=== PATIENT | female | born 1970 | race Hispanic/Latino ===

== ENCOUNTER 2016-06-16 15:08 | Emergency (ER) | payer OTHER ==
--- NOTE | 2016-06-16 15:52 | EDDOCDS ---
Physician Documentation [facility] Name: Osiel Krueger Age: 45 yrs Sex: Female : 1970 Arrival Date: 06/16/2016 Time: 15:08 Bed I9 / 22 Private MD: Jack Mcgill Disposition: 06/16/16 15:43 Discharged to Home/Self Care. Impression: Illness, unspecified, Otalgia and effusion of ear. - Condition is Stable. - Discharge Instructions: Earache, Viral Infections. - Prescriptions for Tamiflu 75 mg Oral Capsule - take 1 capsule by ORAL route every 12 hours for 5 days; 10 capsule. Mucinex 600 mg - take 1 tablet by ORAL route 2 times per day; 30 tablet. - Work Release Form - 2 day, Medication Reconciliation, Local Pharmacy Hours form. - Follow up: Jack Mcgill; When: 4 - 5 days; Reason: Recheck today's complaints, Continuance of care. - Problem is an ongoing problem. - Symptoms are unchanged. Historical: - Allergies: no known allergies; - Home Meds: 1. cetirizine 10 mg oral cap daily 2. dayquil as needed (Last dose: 06/16/2016 08:00) 3. Advil 200 mg Oral tab 2 tabs every 4 hours (Last dose: 06/16/2016 14:00) - PMHx: Allergies, Seasonal; - PSHx: none; - Social history: Smoking status: Patient states was never smoker of tobacco. Patient/guardian denies using alcohol, street drugs, No barriers to communication noted, The patient speaks fluent Estonian, Speaks appropriately for age, Preferred Language: Slovenian. - Family history: Not pertinent. - : The pt / caregiver states he / she is not on anticoagulants. Home medication list is obtained from the patient. - Exposure Risk Screening:: None identified. 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 2 in. (157.48 cm); Pain 6/10; 15:10 Body Mass Index 26.52 (65.77 kg, 157.48 cm) jrd Signatures: Leonard Jarrell, RN RN dy Chin Galicia, BRAND AMBASSADOR PROMOTIONAL MODEL BRAND AMBASSADOR PROMOTIONAL MODEL Latisha Moya, RN RN ttb MTDD
--- NOTE | 2016-06-16 15:52 | EDDOCDS ---
Nurse's Notes [facility] Name: Osiel Krueger Age: 45 yrs Sex: Female : 1970 Arrival Date: 06/16/2016 Time: 15:08 Bed I9 / 22 Private MD: Jack Mcgill Diagnosis: Illness, unspecified;Otalgia and effusion of ear Presentation: 06/16 15:29 Presenting complaint: Patient states: Right ear pain, throat pain x1 day. Adult Sepsis ttb Screening: The patient does not have new or worsening altered mentation. Patient's respiratory rate is less than 22. Systolic blood pressure is greater than 100. Patient has a qSOFA score of 0- Negative Sepsis Screen. Suicide/Homicide risk assessment- the patient denies having any suicidal and/or homicidal ideations and does not present with any other emotional, behavioral or mental health complaints. Status: Patient is not a industrial garage servicer or dependent. Transition of care: patient was not received from another setting of care. 15:29 Acuity: ADAM Level 4 ttb 15:29 Method Of Arrival: Walkin/Carried/Asstd ttb Triage Assessment: 15:30 General: Appears in no apparent distress, well nourished, well groomed, Behavior is ttb appropriate for age, cooperative, pleasant. Pain: Location: right ear. HIV screening NA for this visit Offered previously. EENT:. Respiratory: Airway is patent Reports cough that is. Derm: Skin is normal. 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 cetirizine 10 mg oral cap daily 2. dayquil as needed (Last dose: 06/16/2016 08:00) 3. Advil 200 mg Oral tab 2 tabs every 4 hours (Last dose: 06/16/2016 14:00) - PMHx: Allergies, Seasonal; - PSHx: none; - Social history: Smoking status: Patient states was never smoker of tobacco. Patient/guardian denies using alcohol, street drugs, No barriers to communication noted, The patient speaks fluent Slovak, Speaks appropriately for age, Preferred Language: Latvian. - Family history: Not pertinent. - : The pt / caregiver states he / she is not on anticoagulants. Home medication list is obtained from the patient. - Exposure Risk Screening:: None identified. Screenin:50 Screening information is obtained from the patient. Fall risk: No risks identified. dy Assistance ADL's: requires no assistance with activities of daily living. Abuse/DV Screen: The patient / caregiver reports he/she is: not in a situation that causes fear, pain or injury. Nutritional screening: No deficits noted. Advance Directives: There is no active DNR order. home support is adequate. Assessment: 15:51 General: Appears in no apparent distress, Behavior is appropriate for age, cooperative. dy Pain: Location: throat. Neurological: No deficits noted. Respiratory: No deficits noted. Derm: Skin is pink, warm & dry. Vital Signs: 15:10 BP 158 / 83; Pulse 122; Resp 18; Temp 99.6(O); Pulse Ox 100% on R/A; Weight 65.77 kg jr (R); Height 5 ft. 2 in. (157.48 cm); Pain 6/10; 15:10 Body Mass Index 26.52 (65.77 kg, 157.48 cm) [facility] Vitals: 15:10 Log In Time: June 16, 2016 at 15:00. [facility] ED Course: 15:09 Patient visited by Hector Brandt PCA. jrd 15:09 Patient moved to Waiting jrd 15:10 Jack Mcgill is Private Physician. jrd 15:12 Patient visited by Hector Brandt PCA. jrd 15:12 Patient moved to Pre RCE jrd 15:29 Triage Initiated ttb 15:31 Patient moved to I9 / 22 ttb 15:36 [facility] ke 15:36 Patient visited by Chin Galicia FNP. ke 15:36 Patient visited by Chin Galicia FNP. ke 15:43 Jack Mcgill is Referral Physician. ke 15:50 The patient / caregiver is instructed regarding the plan of care and ED course. Patient dy has correct armband on for positive identification. 15:50 No IV's were initiated during this patient's visit. No procedures done that require dy assistance. Order Results: There are currently no results for this order. Outcome: 15:43 Discharge ordered by Provider. ke 15:50 Discharge Assessment: patient administered narcotics - no. The following High Risk dy Discharge criteria are identified: None. Discharged to home ambulatory. Condition: stable. Discharge instructions given to patient, Instructed on discharge instructions, follow up and referral plans. medication usage, Demonstrated understanding of instructions, medications, Pt was receptive of discharge instructions/ teaching. Prescriptions given X 2, Work note provided to patient. No special radiology studies were completed. Property sent home with patient. 15:52 Patient left the ED. dy Signatures: Leonard Jarrell RN RN Chin Tay, FOREIGN LANGUAGE STENOGRAPHER Latisha Arellano RN RN ttHector Gross PCA PCA jramber WILBUR
--- NOTE | 2016-06-18 16:53 | EDDOCDS ---
Nurse's Notes [facility] Name: Osiel Krueger Age: 45 yrs Sex: Female : 1970 Arrival Date: 06/16/2016 Time: 15:08 Bed I9 / 22 Private MD: Jack Mcgill Diagnosis: Illness, unspecified;Otalgia and effusion of ear Presentation: 06/16 15:29 Presenting complaint: Patient states: Right ear pain, throat pain x1 day. Adult Sepsis ttb Screening: The patient does not have new or worsening altered mentation. Patient's respiratory rate is less than 22. Systolic blood pressure is greater than 100. Patient has a qSOFA score of 0- Negative Sepsis Screen. Suicide/Homicide risk assessment- the patient denies having any suicidal and/or homicidal ideations and does not present with any other emotional, behavioral or mental health complaints. Status: Patient is not a consulting services associate or dependent. Transition of care: patient was not received from another setting of care. 15:29 Acuity: ADAM Level 4 ttb 15:29 Method Of Arrival: Walkin/Carried/Asstd ttb Triage Assessment: 15:30 General: Appears in no apparent distress, well nourished, well groomed, Behavior is ttb appropriate for age, cooperative, pleasant. Pain: Location: right ear. HIV screening NA for this visit Offered previously. EENT:. Respiratory: Airway is patent Reports cough that is. Derm: Skin is normal. 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 cetirizine 10 mg oral cap daily 2. dayquil as needed (Last dose: 06/16/2016 08:00) 3. Advil 200 mg Oral tab 2 tabs every 4 hours (Last dose: 06/16/2016 14:00) - PMHx: Allergies, Seasonal; - PSHx: none; - Social history: Smoking status: Patient states was never smoker of tobacco. Patient/guardian denies using alcohol, street drugs, No barriers to communication noted, The patient speaks fluent Welsh, Speaks appropriately for age, Preferred Language: Italian. - Family history: Not pertinent. - : The pt / caregiver states he / she is not on anticoagulants. Home medication list is obtained from the patient. - Exposure Risk Screening:: None identified. Screenin:50 Screening information is obtained from the patient. Fall risk: No risks identified. dy Assistance ADL's: requires no assistance with activities of daily living. Abuse/DV Screen: The patient / caregiver reports he/she is: not in a situation that causes fear, pain or injury. Nutritional screening: No deficits noted. Advance Directives: There is no active DNR order. home support is adequate. Assessment: 15:51 General: Appears in no apparent distress, Behavior is appropriate for age, cooperative. dy Pain: Location: throat. Neurological: No deficits noted. Respiratory: No deficits noted. Derm: Skin is pink, warm & dry. Vital Signs: 15:10 BP 158 / 83; Pulse 122; Resp 18; Temp 99.6(O); Pulse Ox 100% on R/A; Weight 65.77 kg jr (R); Height 5 ft. 2 in. (157.48 cm); Pain 6/10; 15:10 Body Mass Index 26.52 (65.77 kg, 157.48 cm) [facility] Vitals: 15:10 Log In Time: June 16, 2016 at 15:00. [facility] ED Course: 15:09 Patient visited by Hector Brandt PCA. jrd 15:09 Patient moved to Waiting jrd 15:10 Jack Mcgill is Private Physician. jrd 15:12 Patient visited by Hector Brandt PCA. jrd 15:12 Patient moved to Pre RCE jrd 15:29 Triage Initiated ttb 15:31 Patient moved to I9 / 22 ttb 15:36 Chin Galicia FNP is [facility]. ke 15:36 Patient visited by Chin Galicia FNP. ke 15:36 Patient visited by Chin Galicia FNP. ke 15:43 Jack Mcgill is Referral Physician. ke 15:50 The patient / caregiver is instructed regarding the plan of care and ED course. Patient dy has correct armband on for positive identification. 15:50 No IV's were initiated during this patient's visit. No procedures done that require dy assistance. 06/17 09:18 T-Sheet-- Draft Copy was scanned into [employer] and attached to record. gb Order Results: There are currently no results for this order. Outcome: 06/16 15:43 Discharge ordered by Provider. skyla 15:50 Discharge Assessment: patient administered narcotics - no. The following High Risk dy Discharge criteria are identified: None. Discharged to home ambulatory. Condition: stable. Discharge instructions given to patient, Instructed on discharge instructions, follow up and referral plans. medication usage, Demonstrated understanding of instructions, medications, Pt was receptive of discharge instructions/ teaching. Prescriptions given X 2, Work note provided to patient. No special radiology studies were completed. Property sent home with patient. 15:52 Patient left the ED. dy Signatures: Candi Gonzalez, Reg Reg gb Leonard Jarrell, RN RN Chin Tay, WINCHER WINCHER Latisha Moya RN RN ttb Hector Brandt, CARLITO TEMPLATE REPRODUCTION TECHNICIAN jrd Chart Complete WILBRU
--- NOTE | 2016-06-18 16:53 | EDDOCDS ---
Physician Documentation [facility] Name: Osiel Krueger Age: 45 yrs Sex: Female : 1970 Arrival Date: 06/16/2016 Time: 15:08 Bed I9 / 22 Private MD: Jack Mcgill Disposition: 06/16/16 15:43 Discharged to Home/Self Care. Impression: Illness, unspecified, Otalgia and effusion of ear. - Condition is Stable. - Discharge Instructions: Earache, Viral Infections. - Prescriptions for Tamiflu 75 mg Oral Capsule - take 1 capsule by ORAL route every 12 hours for 5 days; 10 capsule. Mucinex 600 mg - take 1 tablet by ORAL route 2 times per day; 30 tablet. - Work Release Form - 2 day, Medication Reconciliation, Local Pharmacy Hours form. - Follow up: Jack Mcgill; When: 4 - 5 days; Reason: Recheck today's complaints, Continuance of care. - Problem is an ongoing problem. - Symptoms are unchanged. Historical: - Allergies: no known allergies; - Home Meds: 1. cetirizine 10 mg oral cap daily 2. dayquil as needed (Last dose: 06/16/2016 08:00) 3. Advil 200 mg Oral tab 2 tabs every 4 hours (Last dose: 06/16/2016 14:00) - PMHx: Allergies, Seasonal; - PSHx: none; - Social history: Smoking status: Patient states was never smoker of tobacco. Patient/guardian denies using alcohol, street drugs, No barriers to communication noted, The patient speaks fluent Urdu, Speaks appropriately for age, Preferred Language: Nigerien. - Family history: Not pertinent. - : The pt / caregiver states he / she is not on anticoagulants. Home medication list is obtained from the patient. - Exposure Risk Screening:: None identified. 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 2 in. (157.48 cm); Pain 6/10; 15:10 Body Mass Index 26.52 (65.77 kg, 157.48 cm) jrd MDM: 06/17 09:18 T-Sheet-- Draft Copy was scanned into [employer] and attached to record. gb Signatures: Candi Gonzalez, Altaf Reg Leonard Nelson, RN RN Chin Tay, FILM DEVELOPER FILM DEVELOPER Latisha Moya RN RN ttb The chart was reviewed and I authenticate all verbal orders and agree with the evaluation and treatment provided.Attachments: 09:18 T-Sheet-- Draft Copy gb Chart Complete MTDD
--- NOTE | 2016-06-18 16:53 | EDDOCDS ---
Physician Documentation [facility] Name: Osiel Krueger Age: 45 yrs Sex: Female : 1970 Arrival Date: 06/16/2016 Time: 15:08 Bed I9 / 22 Private MD: Jack Mcgill Disposition: 06/16/16 15:43 Discharged to Home/Self Care. Impression: Illness, unspecified, Otalgia and effusion of ear. - Condition is Stable. - Discharge Instructions: Earache, Viral Infections. - Prescriptions for Tamiflu 75 mg Oral Capsule - take 1 capsule by ORAL route every 12 hours for 5 days; 10 capsule. Mucinex 600 mg - take 1 tablet by ORAL route 2 times per day; 30 tablet. - Work Release Form - 2 day, Medication Reconciliation, Local Pharmacy Hours form. - Follow up: Jack Mcgill; When: 4 - 5 days; Reason: Recheck today's complaints, Continuance of care. - Problem is an ongoing problem. - Symptoms are unchanged. Historical: - Allergies: no known allergies; - Home Meds: 1. cetirizine 10 mg oral cap daily 2. dayquil as needed (Last dose: 06/16/2016 08:00) 3. Advil 200 mg Oral tab 2 tabs every 4 hours (Last dose: 06/16/2016 14:00) - PMHx: Allergies, Seasonal; - PSHx: none; - Social history: Smoking status: Patient states was never smoker of tobacco. Patient/guardian denies using alcohol, street drugs, No barriers to communication noted, The patient speaks fluent Georgian, Speaks appropriately for age, Preferred Language: Zimbabwean. - Family history: Not pertinent. - : The pt / caregiver states he / she is not on anticoagulants. Home medication list is obtained from the patient. - Exposure Risk Screening:: None identified. 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 2 in. (157.48 cm); Pain 6/10; 15:10 Body Mass Index 26.52 (65.77 kg, 157.48 cm) jrd MDM: 06/17 09:18 T-Sheet-- Draft Copy was scanned into [employer] and attached to record. gb Signatures: Candi Gonzalez, Altaf Reg Leonard Nelson, RN RN Chin Tay, CENTRAL STERILE TECHNICIAN CENTRAL STERILE TECHNICIAN Latisha Moya RN RN ttb The chart was reviewed and I authenticate all verbal orders and agree with the evaluation and treatment provided.Attachments: 09:18 T-Sheet-- Draft Copy gb Chart Complete MTDD
== END 2016-06-16 15:52 | disposition home or self-care (01) ==
LOC: M ED 15:08
DX: B34.9 Viral infection, unspecified (principal); H92.01 Otalgia, right ear; J30.2 Other seasonal allergic rhinitis

== ENCOUNTER 2016-07-27 15:15 | Emergency (ER) | payer OTHER ==
[~2016-07-27] VITALS: Ht 157.5 cm; Wt 68.0 kg
[2016-07-27] MEDS ORDERED: ASPIRIN 81 MG CHEW TABLET PO ONE (15:45)
[2016-07-27] MEDS: METOPROLOL 5 MG/5 ML VIAL IV SCH ×3 (15:50→15:55)
[2016-07-27 16:15] VITALS: BP 130/82
[2016-07-27] MEDS ORDERED: METOPROLOL TART 50 MG TAB PO ONE (16:15)
[2016-07-27 16:21] LABS: CONTROL LINE HCG INT CTR LINE PRESENT
[2016-07-27 16:30] LABS: ALKALINE PHOSPHATASE 55 U/L (45-117); ALT/SGPT 13 U/L (12-78); ANION GAP 8 MEQ/L (8-16); AST/SGOT 15 U/L (15-37); BILIRUBIN,DIRECT < 0.1 MG/DL (0.0-0.2); BILIRUBIN,TOTAL 0.3 MG/DL (0.2-1.0); BLOOD UREA NITROGEN 18 MG/DL (7-18); CALCIUM LEVEL 8.6 MG/DL (8.5-10.1); CARBON DIOXIDE LEVEL 23 MEQ/L (21-32); CHLORIDE LEVEL 107 MEQ/L (98-107); FREE T4 1.07 NG/DL (0.76-1.46); GLOMERULAR FILTRATION RATE > 60.0 (>58); GLUCOSE, FASTING 116 MG/DL (70-105); POTASSIUM SERUM 3.3 MEQ/L (3.5-5.1); SODIUM LEVEL 138 MEQ/L (136-145)
[2016-07-27 16:38] LABS: ADD MORPHOLOGY? YES; BASO % 0.7 % (0.0-1.0); EOS # 0.1 K/mm3 (0.0-0.50); LARGE UNSTAINED CELL # 0.2 K/mm3 (0.0-0.4); LARGE UNSTAINED CELL % 2.3 % (0.0-4.0); LYMPH # 1.8 K/mm3 (1.5-4.5); LYMPH % 21.2 % (24.0-44.0); MEAN CORPUSCULAR HGB CONC 25.6 g/dl (32.0-36.5); MEAN CORPUSCULAR VOLUME 66.4 fl (80.0-96.0); MONO # 0.4 K/mm3 (0.0-0.8); MONO % 5.3 % (0.0-5.0); NEUTROPHILS # 5.3 K/mm3 (1.8-7.7); NEUTROPHILS % 69.6 % (36.0-66.0); PLATELET COUNT, AUTOMATED 318 k/mm3 (150-450); RED CELL DISTRIBUTION WIDTH 19.9 % (11.5-14.5); WHITE BLOOD COUNT 7.6 K/mm3 (4.0-10.0)
[2016-07-27 16:51] LABS: ANISOCYTOSIS 2+; HYPOCHROMASIA 2+; MICROCYTOSIS 3+
[2016-07-27 16:52] LABS: POIKILOCYTOSIS 1+; POLYCHROMASIA 1+; SCHISTOCYTES 1+; TEAR DROP CELLS 2+
[2016-07-27 16:54] LABS: OVALOCYTES 1+
[2016-07-27 17:04] LABS: PERCENT SATURATION 1.8 % (13.2-37.4); TOTAL IRON BINDING CAPACITY 547 UG/DL (250-450)
[2016-07-27] MEDS ORDERED: FERR325T3 PO (18:44)
[2016-07-27] MEDS ORDERED: ACETAMINOPHEN 325 MG TAB As Ordered ONE (21:57)
[2016-07-27] MEDS ORDERED: ACETAMINOPHEN TAB 650MG DOSE (2X325MG) PO ONE (22:00)
[2016-07-27 23:29] VITALS: BP 122/78
--- NOTE | 2016-07-28 07:52 | REP ---
AP PORTABLE CHEST: 07/27/2016. Clinical history: Chest pain. There is no prior study. The portable chest shows the lungs marginally adequate in the degree of inflation. There is no effusion, lateral pleural thickening, apical scarring or pneumothorax. Heart, mediastinal and hilar contours are normal. Airway intact. There is no widening of the mediastinum for this technique. Bones show no acute finding. There is no free air under the diaphragm. IMPRESSION: 1. No acute cardiopulmonary change. Signed by Sammy Daniels MD 07/28/2016 08:35 A
--- NOTE | 2016-07-28 20:57 | ECGEPIP ---
Stationary ECG Study [facility] - ED Test Date: 2016-07-27 Pat Name: ZAIDA GARCIAepartment: Room: - Gender: F Hand Tacker: rn : 1970 Requested By: EULALIO Mina Order Number: [id number] Reading MD: Zabrina Foreman Measurements Intervals [place] Rate: 158 P: [place]: 0 QRS: 57 QRSD: 76 T: -1 QT: 252 QTc: 409 Interpretive Statements ATRIAL FIBRILLATION WITH RAPID VENTRICULAR RESPONSE MINIMAL ST DEPRESSION ABNORMAL RHYTHM ECG NO PRIOR FOR COMPARISON Electronically Signed On 07-28-2016 20:57:04 EDT by Zabrina Foreman
--- NOTE | 2016-07-28 20:59 | ECGEPIP ---
Stationary ECG Study [facility] - ED Test Date: 2016-07-27 Pat Name: ZAIDA GARCIAepartment: Room: - Gender: F Ad Terminal Makeup Operator: rn : 1970 Requested By: Haim Anderson Order Number: [id number] Reading MD: Zabrina Foreman Measurements Intervals [place] Rate: 97 P: 44 TN: 200 QRS: 46 QRSD: 84 T: 37 QT: 309 QTc: 394 Interpretive Statements SINUS RHYTHM PRIOR ATRIAL FIBRILLATION 15:40 Electronically Signed On 07-28-2016 20:59:13 EDT by Zabrina Foreman
== END 2016-07-27 23:28 | disposition home or self-care (01) ==
LOC: M ED 15:36 → MERGE 15:36 → M ED 23:28
DX: I48.0 Paroxysmal atrial fibrillation (principal)

== ENCOUNTER → 2016-09-18 | Outpatient (CLI) | payer OTHER ==
[~2016-09-18] VITALS: Ht 157.5 cm; Wt 64.4 kg
[~2016-09-18] MED LIST: FE T325T PO; FERR325T3 PO; LIDOCAINE 2% INJ 100 MG/5 ML SDV (FOR ANES.) As Ordered ONE; NS 500 ML IV SCH; PROPOFOL 500 MG/50 ML VIAL As Ordered ONE
--- NOTE | 2016-09-18 12:07 | ROOR ---
Patient Name: Osiel Rome Procedure Date: 09/18/2016 11:38 AM Date of : 1970 Age: 45 Room: [facility] Gender: Female Note Status: Finalized Procedure: Upper GI endoscopy Indications: Iron deficiency anemia Providers: Lyndon Bender DO Referring MD: 1. No Referring Physician 1. No Referring Physician, Admin. Requesting Provider: Medicines: Propofol per Anesthesia Complications: No immediate complications. Procedure: Pre-Anesthesia Assessment: - Prior to the procedure, a History and Physical was performed, and patient medications and allergies were reviewed. The patient is competent. The risks and benefits of the procedure and the sedation options and risks were discussed with the patient. All questions were answered and informed consent was obtained. Patient identification and proposed procedure were verified by the physician, the nurse, the anesthesiologist and the groundwater monitoring technician in the endoscopy suite. Mental Status Examination: alert and oriented. Airway Examination: normal oropharyngeal airway and neck mobility. Respiratory Examination: clear to auscultation. CV Examination: normal. Prophylactic Antibiotics: The patient does not require prophylactic antibiotics. Prior Anticoagulants: The patient has taken no previous anticoagulant or antiplatelet agents. ASA Grade Assessment: I - A normal, healthy patient. After reviewing the risks and benefits, the patient was deemed in satisfactory condition to undergo the procedure. The anesthesia plan was to use monitored anesthesia care (MAC). Immediately prior to administration of medications, the patient was re-assessed for adequacy to receive sedatives. The heart rate, respiratory rate, oxygen saturations, blood pressure, adequacy of pulmonary ventilation, and response to care were monitored throughout the procedure. The physical status of the patient was re-assessed after the procedure. The Endoscope was introduced through the mouth, and advanced to the second part of duodenum. The upper GI endoscopy was accomplished without difficulty. The patient tolerated the procedure well. Findings: Diffuse mild inflammation characterized by congestion (edema) was found in the prepyloric region of the stomach. Biopsies were taken with a cold forceps for Helicobacter pylori testing. Estimated blood loss was minimal. Impression: - Gastritis. Biopsied. Recommendation: - Patient has a contact number available for emergencies. The signs and symptoms of potential delayed complications were discussed with the patient. Return to normal activities tomorrow. Written discharge instructions were provided to the patient. - Telephone my office for pathology results in 1 week. Lyndon Bender DO 09/18/2016 12:07:29 PM This report has been signed electronically. Number of Addenda: 0 Note Initiated On: 09/18/2016 11:38 AM Estimated Blood Loss: Estimated blood loss was minimal.
--- NOTE | 2016-09-18 12:10 | ROOR ---
Patient Name: Osiel Rome Procedure Date: 09/18/2016 11:39 AM Date of : 1970 Age: 45 Room: [id number] Gender: Female Note Status: Finalized Procedure: Colonoscopy Indications: Iron deficiency anemia Providers: Lyndon Bender DO Referring MD: 1. No Referring Physician 1. No Referring Physician, Admin. Requesting Provider: Medicines: Propofol per Anesthesia Complications: No immediate complications. Procedure: Pre-Anesthesia Assessment: - Prior to the procedure, a History and Physical was performed, and patient medications and allergies were reviewed. The risks and benefits of the procedure and the sedation options and risks were discussed with the patient. All questions were answered and informed consent was obtained. Patient identification and proposed procedure were verified by the physician, the nurse, the anesthesiologist and the poured concrete wall technician in the endoscopy suite. Mental Status Examination: alert and oriented. Airway Examination: normal oropharyngeal airway and neck mobility. Respiratory Examination: clear to auscultation. CV Examination: normal. Prophylactic Antibiotics: The patient does not require prophylactic antibiotics. Prior Anticoagulants: The patient has taken no previous anticoagulant or antiplatelet agents. ASA Grade Assessment: I - A normal, healthy patient. After reviewing the risks and benefits, the patient was deemed in satisfactory condition to undergo the procedure. The anesthesia plan was to use monitored anesthesia care (MAC). Immediately prior to administration of medications, the patient was re-assessed for adequacy to receive sedatives. The heart rate, respiratory rate, oxygen saturations, blood pressure, adequacy of pulmonary ventilation, and response to care were monitored throughout the procedure. The physical status of the patient was re-assessed after the procedure. The Colonoscope was introduced through the anus and advanced to the cecum, identified by the appendiceal orifice, ileocecal valve and palpation. The colonoscopy was performed without difficulty. The patient tolerated the procedure well. Findings: A few small-mouthed diverticula were found in the sigmoid colon. The perianal exam findings include internal hemorrhoids (Grade I). Impression: - Diverticulosis in the sigmoid colon. - Internal hemorrhoids (Grade I) found on perianal exam. - No specimens collected. Recommendation: - Patient has a contact number available for emergencies. The signs and symptoms of potential delayed complications were discussed with the patient. Return to normal activities tomorrow. Written discharge instructions were provided to the patient. - Repeat colonoscopy in 5-10 years for screening purposes. Lyndon Bender DO 09/18/2016 12:09:49 PM This report has been signed electronically. Number of Addenda: 0 Note Initiated On: 09/18/2016 11:39 AM Estimated Blood Loss: Estimated blood loss: none.
[2016-09-18 12:29] VITALS: BP 117/66
== END | disposition home or self-care (01) ==
LOC: M OPP 10:48
PROVIDERS: ATTEND Surgery
DX: D50.9 Iron deficiency anemia, unspecified (principal); K57.30 Diverticulosis of large intestine without perforation or abscess without bleeding; K64.0 First degree hemorrhoids; K29.70 Gastritis, unspecified, without bleeding; I10 Essential (primary) hypertension; I48.91 Unspecified atrial fibrillation; E78.00 Pure hypercholesterolemia, unspecified; Z79.899 Other long term (current) drug therapy

== ENCOUNTER 2018-01-27 17:13 | Emergency (ER) | payer MEDICAID, SELFPAY, OTHER ==
[2018-01-27] MEDS: LIDOCAINE 1% MDV 20ML VIAL IM (18:46)
[2018-01-27] MEDS: ADACEL/BOOSTRIX VACCINE (DIPHTH/PERTUSS/ACELL/TETANUS)0.5ML SYR (90715) IM (18:58)
== END 2018-01-27 19:27 | disposition home or self-care (01) ==
LOC: M ED 17:13
DX: S01.01XA Laceration without foreign body of scalp, initial encounter (principal); W22.8XXA Striking against or struck by other objects, initial encounter; Y92.9 Unspecified place or not applicable; Y93.9 Activity, unspecified; Y99.9 Unspecified external cause status; I10 Essential (primary) hypertension
CPT/HCPCS: 90715

== ENCOUNTER 2018-02-05 12:22 | Emergency (ER) | payer MEDICAID, SELFPAY | END 2018-02-05 12:53 | disposition home or self-care (01) | LOC: M ED 12:22 | DX: Z48.02 Encounter for removal of sutures (principal); I10 Essential (primary) hypertension | CPT/HCPCS: 99282 ==

== ENCOUNTER 2019-04-29 15:26 | Emergency (ER) | payer MEDICAID, OTHER ==
[~2019-04-29] VITALS: Ht 162.6 cm; Wt 71.4 kg
[~2019-04-29 15:26] MED LIST changes: +FLON1SPR NARES; -LIDOCAINE 2% INJ 100 MG/5 ML SDV (FOR ANES.) As Ordered ONE; -NS 500 ML IV SCH; -PROPOFOL 500 MG/50 ML VIAL As Ordered ONE
[2019-04-29] MEDS ORDERED: mucinex (15:31)
[2019-04-29 16:37] LABS: INFLUENZA A AMPLIFICATION NEGATIVE (NEGATIVE); INFLUENZA B AMPLIFICATION NEGATIVE (NEGATIVE)
[2019-04-29] MEDS ORDERED: PENI500T PO (16:47)
[2019-04-29 16:54] VITALS: BP 133/75
== END 2019-04-29 16:56 | disposition home or self-care (01) ==
LOC: M ED 15:26
DX: J02.0 Streptococcal pharyngitis (principal)

== ENCOUNTER → 2021-05-25 | Outpatient (CLI) | payer OTHER ==
[~2021-05-25] MED LIST changes: +PENI500T PO; +mucinex
== END ==
LOC: M WHC 09:36
PROVIDERS: ATTEND Family Medicine Addiction Medicine
DX: Z12.31 Encounter for screening mammogram for malignant neoplasm of breast (principal); Z98.82 Breast implant status

== ENCOUNTER 2022-07-10 12:32 | Emergency (ER) | payer BC, OTHER ==
[~2022-07-10] VITALS: Ht 157.5 cm; Wt 66.8 kg
[2022-07-10] MEDS ORDERED: BACT400T PO (12:46)
[2022-07-10 17:22] VITALS: BP 138/89
== END 2022-07-10 17:35 | disposition home or self-care (01) ==
LOC: M ED 12:32 → MERGE 12:32 → M ED 17:35
DX: N64.4 Mastodynia (principal); T85.41XA Breakdown (mechanical) of breast prosthesis and implant, initial encounter; Y81.2 Prosthetic and other implants, materials and accessory general- and plastic-surgery devices associated with adverse incidents

== ENCOUNTER → 2022-08-02 | Outpatient (CLI) | payer OTHER ==
[~2022-08-02] MED LIST changes: +BACT400T PO; +CETI10CH PO; +MELO15TA28 PO; +MONT10TA97 PO
[2022-08-02 11:53] LABS: BASO # 0.1 10^3/uL (0.0-0.2); EOS # 0.2 10^3/uL (0.0-0.5); HEMATOCRIT 40.6 % (36.0-47.0); HEMOGLOBIN 13.1 g/dl (12.0-15.5); LYMPH # 1.6 10^3/uL (1.5-5.0); LYMPH % 31.9 % (24.0-44.0); MEAN CORPUSCULAR HEMOGLOBIN 28.8 pg (27.0-33.0); MEAN CORPUSCULAR HGB CONC 32.3 g/dl (32.0-36.5); MEAN CORPUSCULAR VOLUME 89.2 fl (80.0-96.0); MONO # 0.5 10^3/uL (0.0-0.8); MONO % 9.4 % (2.0-8.0); NEUTROPHILS # 2.8 10^3/uL (1.5-8.5); NEUTROPHILS % 54.1 % (36.0-66.0); PLATELET COUNT, AUTOMATED 219 10^3/uL (150-450); RED BLOOD COUNT 4.55 10^6/uL (4.00-5.40); WHITE BLOOD COUNT 5.1 10^3/uL (4.0-10.0)
[2022-08-02 12:17] LABS: BLOOD UREA NITROGEN 11 MG/DL (9-23); CALCIUM LEVEL 9.2 MG/DL (8.5-10.1); CARBON DIOXIDE LEVEL 31 MMOL/L (20-31); CHLORIDE LEVEL 103 MMOL/L (98-107); CREATININE FOR GFR 0.48 MG/DL (0.55-1.30); GLOMERULAR FILTRATION RATE > 60.0 (>51); GLUCOSE, FASTING 86 MG/DL (60-100); SODIUM LEVEL 138 MMOL/L (136-145)
== END ==
LOC: M RAD 11:04 → M EKG 11:04
PROVIDERS: ATTEND Nurse Practitioner Family
DX: Z01.818 Encounter for other preprocedural examination (principal)

== ENCOUNTER 2022-08-09 10:11 | Day surgery (SDC) | payer OTHER ==
[~2022-08-09] VITALS: Ht 157.5 cm; Wt 68.9 kg
[~2022-08-09 10:11] MED LIST changes: +ceFAZolin SOD 2 GM in IV 1 EA IV ONE
[2022-08-09] MEDS ORDERED: LR 1,000 ML IV SCH ×2 (10:45→16:00)
[2022-08-09] MEDS ORDERED: ROCURONIUM BROMIDE 50MG/5ML VIAL As Ordered ONE ×3 (10:46→15:12)
[2022-08-09] MEDS ORDERED: LIDOCAINE 2% 100MG/5ML SDV (FOR ANES.) As Ordered ONE (10:46)
[2022-08-09] MEDS ORDERED: MIDAZOLAM INJ 2MG/2ML VIAL As Ordered ONE (10:46)
[2022-08-09] MEDS ORDERED: fentaNYL 100 MCG/2 ML INJECTION As Ordered ONE (10:46)
[2022-08-09] MEDS ORDERED: propofoL 200 MG/20 ML VIAL As Ordered ONE (10:46)
[2022-08-09] MEDS ORDERED: BUPIVACAINE LIPOSOME/PF 1.3% 20ML VIAL (13.3MG/ML)(EXPAREL) As Ordered ONE (11:37)
[2022-08-09] MEDS ORDERED: BUPIVACAINE HCL 0.25% 10ML VIAL As Ordered ONE (11:38)
[2022-08-09] MEDS ORDERED: GENTAMICIN SULF 80MG/2ML VIAL As Ordered ONE (11:38)
[2022-08-09] MEDS ORDERED: HYDROmorphone HCL 2MG/ML 1ML VIAL As Ordered ONE (12:54)
[2022-08-09] MEDS ORDERED: PHENYLephrine 500MCG 5ML (100MCG/ML) SYRINGE As Ordered ONE (12:59)
[2022-08-09] MEDS ORDERED: ePHEDrine SULFATE 25 MG/5 ML(5MG/ML) SYRINGE As Ordered ONE (13:01)
[2022-08-09] MEDS ORDERED: KETOROLAC 60MG 2ML VIAL As Ordered ONE (13:08)
[2022-08-09] MEDS ORDERED: ONDANSETRON 4MG 2ML VIAL As Ordered ONE (13:08)
[2022-08-09] MEDS ORDERED: ACETAMINOPHEN 1000MG 100ML IV BAG As Ordered ONE (13:08)
[2022-08-09] MEDS ORDERED: METOCLOPRAMIDE INJ 10MG/2ML VIAL As Ordered ONE (13:08)
[2022-08-09] MEDS ORDERED: HYDROMORPHONE HCL 0.5 MG/ 0.5 ML SYRINGE IV PRN (16:00)
[2022-08-09] MEDS ORDERED: fentaNYL 100 MCG/2 ML INJECTION IV PRN (16:00)
[2022-08-09] MEDS ORDERED: ONDANSETRON 4MG 2ML VIAL IV PRN (16:00)
[2022-08-09] MEDS ORDERED: oxyCODONE 5MG TAB PO PRN (16:00)
[2022-08-09] MEDS ORDERED: TRAM50TA2 PO (18:12)
[2022-08-09 20:00] VITALS: BP 145/75
== END 2022-08-09 20:14 | disposition home or self-care (01) ==
LOC: M SDC 10:11
PROVIDERS: ATTEND Plastic Surgery Surgery of the Hand
DX: T85.44XA Capsular contracture of breast implant, initial encounter (principal); T85.49XA Other mechanical complication of breast prosthesis and implant, initial encounter; Y81.2 Prosthetic and other implants, materials and accessory general- and plastic-surgery devices associated with adverse incidents; I10 Essential (primary) hypertension; R51.9 Headache, unspecified; Z79.899 Other long term (current) drug therapy
CPT/HCPCS: 14000; 19371; 87070; 87075; 87205; 88108; 88300; 88304; 88313; C9290; J0131; J0690; J1100; J1170; J1580; J1885; J2250; J2370; J2405; J2765; J3010

== ENCOUNTER 2024-04-24 13:23 | Emergency (ER) | payer OTHER ==
[~2024-04-24] VITALS: Ht 160 cm; Wt 68.0 kg
[~2024-04-24 13:23] MED LIST changes: +TRAM50TA2 PO; -ceFAZolin SOD 2 GM in IV 1 EA IV ONE
[2024-04-24] MEDS ORDERED: METOPROLOL 5 MG/5 ML VIAL As Ordered ONE (13:41)
[2024-04-24] MEDS: METOPROLOL 5 MG/5 ML VIAL IV STA (13:47)
[2024-04-24] MEDS: METOPROLOL 5 MG/5 ML VIAL IV SCH (13:50)
[2024-04-24 13:54] LABS: HEMATOCRIT 41.9 % (36.0-47.0); HEMOGLOBIN 14.8 g/dl (12.0-15.5); MEAN CORPUSCULAR HEMOGLOBIN 31.7 pg (27.0-33.0); MEAN CORPUSCULAR HGB CONC 35.3 g/dl (32.0-36.5); MEAN CORPUSCULAR VOLUME 89.7 fl (80.0-96.0); PLATELET COUNT, AUTOMATED 252 10^3/uL (150-450); RED BLOOD COUNT 4.67 10^6/uL (4.00-5.40); WHITE BLOOD COUNT 8.1 10^3/uL (4.0-10.0)
[2024-04-24 14:09] VITALS: BP 138/91
[2024-04-24] MEDS: METOPROLOL TART 50 MG TAB PO ONE (14:09)
[2024-04-24 14:26] LABS: BLOOD UREA NITROGEN 19 MG/DL (9-23); CALCIUM LEVEL 9.4 MG/DL (8.5-10.1); CARBON DIOXIDE LEVEL 26 MMOL/L (20-31); CHLORIDE LEVEL 106 MMOL/L (98-107); CREATININE FOR GFR 0.54 MG/DL (0.55-1.30); GLOMERULAR FILTRATION RATE > 60.0 (>51); GLUCOSE, FASTING 129 MG/DL (60-100); MAGNESIUM LEVEL 1.9 MG/DL (1.8-2.4); POTASSIUM SERUM 3.9 MMOL/L (3.5-5.1); SODIUM LEVEL 140 MMOL/L (136-145)
[2024-04-24 15:05] VITALS: BP 122/79; TEMP 98.1; O2SAT 97
== END 2024-04-24 15:16 | disposition home or self-care (01) ==
LOC: M ED 13:23
DX: I48.91 Unspecified atrial fibrillation (principal); T43.615A Adverse effect of caffeine, initial encounter; I44.0 Atrioventricular block, first degree; D50.9 Iron deficiency anemia, unspecified

== ENCOUNTER 2024-05-14 04:02 | Emergency (ER) | payer OTHER ==
[~2024-05-14] VITALS: Ht 157.5 cm; Wt 68.1 kg
[2024-05-14] MEDS: KETOROLAC 30 MG/ML 1ML VIAL IV ONE (05:20)
[2024-05-14] MEDS: NS (Normal Saline) 0.9% 1,000 ML IV ONE (05:20)
[2024-05-14] MEDS: METOCLOPRAMIDE INJ 10MG/2ML VIAL IV ONE (05:20)
[2024-05-14] MEDS: diazePAM 10MG/2ML SYRINGE IV ONE (05:20)
[2024-05-14] MEDS ORDERED: VALI2TAB PO (07:06)
[2024-05-14 08:15] VITALS: BP 113/74; TEMP 97.8; O2SAT 99
== END 2024-05-14 08:25 | disposition home or self-care (01) ==
LOC: M ED 04:02
DX: R51.9 Headache, unspecified (principal); Z79.899 Other long term (current) drug therapy
CPT/HCPCS: 87486; 87581; 87633; 87798; 96361; 96374; 99284; J1885; J2765; J3360

== ENCOUNTER → 2025-03-24 | Outpatient (REF) | payer OTHER ==
[~2025-03-24] MED LIST changes: +VALI2TAB PO
[2025-03-24 14:31] LABS: CHOLESTEROL LEVEL 161.0 MG/DL (<200); CHOLESTEROL RISK RATIO 3.04 (<5); LDL CHOLESTEROL 92.2 MG/DL (<100); NON-HDL-C 108.2 MG/DL; TRIGLYCERIDES LEVEL 80.0 MG/DL (<150)
[2025-03-24 14:33] LABS: ESTIMATED AVERAGE GLUCOSE 103.0 MG/DL (60-110)
== END ==
LOC: M LAB REF 12:53
PROVIDERS: ATTEND Nurse Practitioner Family
DX: E66.3 Overweight (principal)